=== PATIENT | female | born 1945 | race Asian ===

== ENCOUNTER → 2017-05-03 | Outpatient (CLI) | payer MEDICARE, OTHER ==
[~2017-05-03] MED LIST: ENOX40DI9 SQ
== END | disposition home or self-care (01) ==
LOC: RADPV 10:24
PROVIDERS: ATTEND Orthopaedic Surgery
DX: M16.0 Bilateral primary osteoarthritis of hip (principal); M47.896 Other spondylosis, lumbar region; M79.89 Other specified soft tissue disorders
CPT/HCPCS: 72170